=== PATIENT | male | born 1955 | race African-American/Black ===

== ENCOUNTER 2016-12-22 21:19 | Emergency (ER) | payer OTHER ==
--- NOTE | 2016-12-22 23:53 | ER Document Report ---
ED General - General Chief Complaint: Other Stated Complaint: PAIN LEFT SIDE OF HEAD Time Seen by Provider: 12/22/16 23:31 Notes: Patient is a 61-year-old male who presents complaining of 1 week of pain to the left posterior scalp. He states that he feels like something is moving there or that the area is swollen. Symptoms have been unchanged since onset. Nothing improves or worsens them. He has no history of similar symptoms in the past. He has not seen his primary care doctor regarding today's concerns. He denies any headache, weakness, numbness, fever or constitutional symptoms. Denies any fall or injury to the area. TRAVEL OUTSIDE OF THE [place] IN LAST 30 DAYS: No - Related Data Allergies/Adverse Reactions: mycins Allergy (Severe, Uncoded 12/22/16 21:35) Past Medical History - General Information source: Patient - Social History Smoking Status: Never Smoker Frequency of alcohol use: None Drug Abuse: None Family History: CAD - Father at age 35 apparently from cardiac disease, Other - Mother alive and well - Past Medical History Cardiac Medical History: Reports: Hx Hypertension Denies: Hx Coronary Artery Disease Renal/ Medical History: Denies: Hx Peritoneal Dialysis Infectious Medical History: Denies: Hx MRSA - Immunizations Hx Diphtheria, Pertussis, Tetanus Vaccination: Yes Review of Systems - Review of Systems Notes: Constitutional: Negative for fever. HENT: Negative for sore throat. Eyes: Negative for visual changes. Cardiovascular: Negative for chest pain. Respiratory: Negative for shortness of breath. Gastrointestinal: Negative for abdominal pain, vomiting or diarrhea. Genitourinary: Negative for dysuria. Musculoskeletal: Negative for back pain. Skin: Negative for rash. Neurological: Negative for headaches, weakness or numbness. 10 point ROS negative except as marked above and in HPI. Physical Exam - Vital signs Vitals: Temp Pulse Resp BP Pulse Ox 98.5 F 77 20 145/85 H 98 12/22/16 21:35 12/22/16 21:35 12/22/16 21:35 12/22/16 21:35 12/22/16 21:35 Interpretation: Hypertensive Notes: PHYSICAL EXAMINATION: GENERAL: Well-appearing, well-nourished and in no acute distress. HEAD: Atraumatic, normocephalic. EYES: sclera anicteric, conjunctiva are normal. ENT: Moist mucous membranes. NECK: Normal range of motion LUNGS: Normal work of breathing HEART: 2+ radial pulses bilaterally EXTREMITIES: no pitting or edema. No cyanosis. NEUROLOGICAL: No focal neurological deficits. Moves all extremities spontaneously and on command. PSYCH: Normal mood, normal affect. SKIN: Warm, Dry, normal turgor, mild swelling to the left posterior occiput but no appreciable fluctuance, erythema or lesions Course - Re-evaluation Re-evalutation: 12/22/16 23:51 Patient presents with irritation to the left posterior scalp with no obvious findings on exam. There has been no trauma to the area. He complains that the area feels swollen and irritated. There is no appreciable fluctuance, erythema , or loss of hair. There is a small area that appears to be consistent with a sebaceous cyst which may be the source of his irritation although I am uncertain of this. I have encouraged him to follow-up with his primary care doctor and consider dermatology referral. At this time will discharge with return precautions and follow-up recommendations. Verbal discharge instructions given a the bedside and opportunity for questions given. Medication warnings reviewed. Patient is in agreement with this plan and has verbalized understanding of return precautions and the need for primary care follow-up in the next 24-72 hours. - Vital Signs Vital signs: Temp Pulse Resp BP Pulse Ox 98.5 F 77 20 132/78 H 100 12/22/16 21:35 12/22/16 21:35 12/22/16 21:35 12/23/16 00:16 12/23/16 00:16 Discharge - Discharge Clinical Impression: Scalp irritation Condition: Good Disposition: HOME, SELF-CARE Additional Instructions: Apply the steroid cream as directed. Follow-up with your primary care doctor and consider dermatology referral if this is not improving. Please return to the emergency room immediately if you experience any concerning symptoms including high fevers, severe headache, chest pain, difficulty breathing, abdominal pain, slurred speech, numbness or weakness in your arms or legs, or any other symptom that concerns you. Prescriptions: Triamcinolone Acetonide 80 gm TP TID #80 cream.gm. Referrals: ZARIA ROACH MD [Primary Care Provider] - Follow up as needed
[2016-12-23 00:32] VITALS: BP 132/78
== END 2016-12-23 00:32 | disposition home or self-care (01) ==
LOC: ER 21:19
DX: S00.01XA Abrasion of scalp, initial encounter (principal); R51 Headache; X58.XXXA Exposure to other specified factors, initial encounter
CPT/HCPCS: 99284

== ENCOUNTER 2018-01-18 06:37 | Day surgery (SDC) | payer OTHER ==
--- NOTE | 2018-01-13 09:41 | RADIOLOGY REPORT (SQ) ---
EXAM DESCRIPTION: CHEST PA/LATERAL COMPLETED DATE/TIME: 01/13/2018 9:30 am REASON FOR STUDY: PRE-OP COMPARISON: 08/28/2013 EXAM PARAMETERS: NUMBER OF VIEWS: two views TECHNIQUE: Digital Frontal and Lateral radiographic views of the chest acquired. RADIATION DOSE: NA LIMITATIONS: none FINDINGS: LUNGS AND PLEURA: No opacities, masses or pneumothorax. No pleural effusion. MEDIASTINUM AND HILAR STRUCTURES: No masses or contour abnormalities. HEART AND VASCULAR STRUCTURES: Heart normal size. No evidence for failure. BONES: No acute findings. HARDWARE: None in the chest. OTHER: No other significant finding. IMPRESSION: NO SIGNIFICANT RADIOGRAPHIC FINDING IN THE CHEST. TECHNICAL DOCUMENTATION: JOB ID: [id number] [employer]- All Rights Reserved Reading location - IP/workstation name: [email or web address]
[2018-01-13 10:00] LABS: HEMOGLOBIN 15.1 g/dL (13.5-17.0); MEAN CORPUSCULAR HEMOGLOBIN 30.3 pg (27.0-33.4); MEAN CORPUSCULAR HGB CONC 34.4 g/dL (32.0-36.0); MEAN CORPUSCULAR VOLUME 88 fl (80-97); PLATELET COUNT 306 10^3/uL (150-450); WHITE BLOOD COUNT 8.6 10^3/uL (4.0-10.5)
[2018-01-13 10:38] LABS: APPEARANCE,URINE CLEAR; BILIRUBIN,URINE NEGATIVE (NEGATIVE); COLOR,URINE YELLOW; GLUCOSE, URINE NEGATIVE (NEGATIVE); KETONES,URINE NEGATIVE (NEGATIVE); LEUKOCYTE ESTERASE,URINE NEGATIVE (NEGATIVE); NITRITE,URINE NEGATIVE (NEGATIVE); PROTEIN,URINE NEGATIVE (NEGATIVE); URINE SPECIFIC GRAVITY 1.021; UROBILINOGEN,URINE NEGATIVE mg/dL (<2.0)
[2018-01-13 10:41] LABS: ANION GAP 8 (5-19); BLOOD UREA NITROGEN 20 mg/dL (7-20); CALCIUM 9.6 mg/dL (8.4-10.2); CARBON DIOXIDE 29 mmol/L (22-30); CHLORIDE 102 mmol/L (98-107); GLUCOSE 111 mg/dL (75-110); POTASSIUM 4.8 mmol/L (3.6-5.0); SODIUM 138.6 mmol/L (137-145)
--- NOTE | 2018-01-13 20:55 | EKG REPORT ---
SEVERITY:- BORDERLINE ECG - SINUS RHYTHM BORDERLINE T ABNORMALITIES, INFERIOR LEADS : Confirmed by: Sammi Talavera MD 13-Jan-2018 20:54:09
[~2018-01-18 06:37] MED LIST: CLINDAMYCIN 600 MG/D5W RTU 600 MG/50 ML RTUPB IV ONE; CLINDAMYCIN 600 MG/D5W RTU 600 MG/50 ML RTUPB IV PRN; LACTATED RINGERS 1000 ML IV PRN; LIDOCAINE 0.5% INJ-PF (5 MG/ML) 50 ML SDV SUBCUT PRN
[2018-01-18] MEDS ORDERED: LIDOCAINE 1%/EPINEPHRINE INJ 20 ML VIAL ONE (06:39)
[2018-01-18] MEDS ORDERED: BUPIVACAINE HCL 0.5 % INJ/PF 30 ML SDV ONE (06:39)
[2018-01-18] MEDS ORDERED: FENTANYL CITRATE INJ/PF 100 MCG/2 ML AMPUL ONE ×3 (06:45→06:59)
[2018-01-18] MEDS ORDERED: MIDAZOLAM 2 MG/2 ML INJ ONE (06:45)
[2018-01-18] MEDS ORDERED: DEXAMETHASONE SOD PHOSPHATE INJ 4 MG/1 ML VIAL ONE (06:45)
[2018-01-18] MEDS ORDERED: ONDANSETRON HCL INJ/PF 4 MG/2 ML SDV ONE (06:45)
[2018-01-18] MEDS ORDERED: PROPOFOL INJ 200 MG/20 ML VIAL IV ONE ×2 (06:46→06:59)
[2018-01-18] MEDS ORDERED: MORPHINE SULFATE 10 MG/ML INJ IV PRN (07:39)
[2018-01-18] MEDS ORDERED: FENTANYL CITRATE INJ/PF 100 MCG/2 ML AMPUL IV PRN ×3 (07:39)
[2018-01-18] MEDS ORDERED: DIPHENHYDRAMINE HCL 50 MG/ML VIAL IV PRN (07:39)
[2018-01-18] MEDS ORDERED: ONDANSETRON HCL INJ/PF 4 MG/2 ML SDV IV PRN (07:39)
[2018-01-18] MEDS ORDERED: OXYCODONE-ACETAMINOPHEN 5-325 MG TABLET PO PRN ×2 (07:39)
[2018-01-18] MEDS ORDERED: MEPERIDINE HCL/PF INJ 25 MG/1 ML DISP.SYRIN IV PRN (07:39)
[2018-01-18] MEDS ORDERED: PROMETHAZINE HCL INJ 25 MG/1 ML VIAL IV PRN ×2 (07:39)
--- NOTE | 2018-01-18 08:03 | Operative Report ---
Operative Report DATE OF SURGERY: 01/18/18 PREOPERATIVE DIAGNOSIS: Right medial meniscal tear POSTOPERATIVE DIAGNOSIS: Right medial meniscal tear. Grade III-IV chondromalacia medial compartment. Intact ACL. Lateral meniscal tear. 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 Grade 2-3 chondral malacia of the patellofemoral compartment OPERATION: Arthroscopic right partial medial and lateral meniscectomy SURGEON: SARITA JOSEPH ANESTHESIA: LMAC ESTIMATED BLOOD LOSS: Minimal PROCEDURE: With the patient supine on the operating table the right lower extremities prepped and draped in sterile fashion. The knee is insufflated with accommodation Marcaine, Xylocaine, and epinephrine. Subsequently medial and lateral infrapatellar portals are created for the introduction of arthroscope and debridements mentation. The joint is examined in systematic fashion, findings as above. Using combination of basket Jaramillo, mechanical shaver, and electric frequency ablation probe a partial medial meniscectomy was performed from approximately 4:00 to 12:00 on the face of the dial. Similarly a partial lateral meniscectomy was performed from approximately 12:00 to 7:00 on the face of the dial. The joint is again examined in systematic fashion. No new findings. Instrumentation removed. Portals were approximated using interrupted nylon. A sterile compressive dressing was applied. The patient's return to PACU in satisfactory condition.
--- NOTE | 2018-01-18 08:07 | Discharge Summary ---
Discharge Summary (SDC) - Discharge Final Diagnosis: Right medial meniscal tear Date of Surgery: 01/18/18 Discharge Date: 01/18/18 Condition: Good Treatment or Instructions: Weightbearing as tolerated ambulation. Removed compressive wrap from right knee on Tuesday. Underlying plastic dressing can remain in place until he return to see Dr. Brock Prescriptions: Oxycodone HCl 5 mg PO Q6 PRN #40 tablet PRN Reason: Referrals: ZARIA ROACH MD [Primary Care Provider] - Discharge Diet: As Tolerated, Regular Respiratory Treatments at Home: Deep Breathing/Coughing Discharge Activity: Balance Activity w/Rest, No tub bath Home Care Assistance: None Needed Report the Following to Your Physician Immediately: Shortness of Breath, Fever over 101 Degrees, Drainage-Foul Smelling
[2018-01-18] MEDS ORDERED: OXYCODONE HCL IR 5 MG TABLET PO PRN (08:21)
[2018-01-18] MEDS ORDERED: ONDANSETRON 4 MG TAB.RAPDIS PO PRN (08:21)
[2018-01-18] MEDS ORDERED: OXYCODONE HCL IR 5 MG TABLET ONE (08:34)
[2018-01-18 09:53] VITALS: BP 122/78
== END 2018-01-18 09:30 | disposition home or self-care (01) ==
LOC: OROUT 06:37
PROVIDERS: ATTEND Orthopaedic Surgery
DX: M23.200 Derangement of unspecified lateral meniscus due to old tear or injury, right knee (principal); M23.203 Derangement of unspecified medial meniscus due to old tear or injury, right knee; M22.41 Chondromalacia patellae, right knee; I10 Essential (primary) hypertension; E66.9 Obesity, unspecified; Z01.810 Encounter for preprocedural cardiovascular examination; Z01.811 Encounter for preprocedural respiratory examination; Z01.812 Encounter for preprocedural laboratory examination; Z88.0 Allergy status to penicillin; Z79.899 Other long term (current) drug therapy; Z79.1 Long term (current) use of non-steroidal anti-inflammatories (NSAID); Z68.41 Body mass index [BMI] 40.0-44.9, adult
CPT/HCPCS: 93005; 36415; 85027; 80048; 81001; 71046; 93010; 29880; J2250; J3490 ×2; J1100; J3010; J2405; J2704; 1400